=== PATIENT | male | born 1945 | race Caucasian/White ===

== ENCOUNTER 2018-03-09 19:56 | Emergency (ER) | payer MEDICARE, OTHER ==
[2018-03-09 20:29] LABS: CHLORIDE,CL 104 mEq/L (98-106); SODIUM,NA 143 mEq/L (136-145)
[2018-03-09] MEDS ORDERED: Diltiazem 25 MG/5 ML SDV IVPUSH ONE (20:45)
[2018-03-09] MEDS ORDERED: Metoprolol Tartrate 5 MG/5 ML SDV IVPUSH ONE ×3 (21:00→23:30)
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
[2018-03-09] MEDS ORDERED: Aspirin 325 MG Tab PO ONE (21:21)
[2018-03-09] MEDS ORDERED: Nitroglycerin 0.4 MG Tab.SL SL ONE (21:22)
[2018-03-09] MEDS ORDERED: Aspirin 81 MG Tab.Chew PO ONE (21:24)
[2018-03-09] MEDS ORDERED: Digoxin 500 MCG/2 ML Amp IVPUSH ONE (21:51)
[2018-03-09] MEDS ORDERED: Heparin Sodium/D5W 500 ML ONE (22:02)
[2018-03-09] MEDS ORDERED: Heparin Sodium 10,000 Units/1 ML MDV ONE (22:26)
[2018-03-09] MEDS ORDERED: Amiodarone 150 MG/3 ML SDV ONE (23:22)
[2018-03-09] MEDS ORDERED: Metoprolol Tartrate 5 MG/5 ML SDV ONE (23:23)
[2018-03-09] MEDS ORDERED: Heparin Sodium 10,000 Units/1 ML MDV IVPUSH ONE (23:26)
[2018-03-09] MEDS ORDERED: Amiodarone 150 MG/3 ML SDV IVPUSH ONE (23:30)
== END 2018-03-09 23:35 ==
LOC: CC.ED 19:56
DX: I48.91 Unspecified atrial fibrillation (principal); R55 Syncope and collapse; E78.00 Pure hypercholesterolemia, unspecified; I10 Essential (primary) hypertension; F17.210 Nicotine dependence, cigarettes, uncomplicated; I25.10 Atherosclerotic heart disease of native coronary artery without angina pectoris; E78.5 Hyperlipidemia, unspecified; Z95.5 Presence of coronary angioplasty implant and graft; Z79.899 Other long term (current) drug therapy; Z79.82 Long term (current) use of aspirin
CPT/HCPCS: 36415; 70450; 71046; 80048; 81001; 82550; 83615; 84484; 85025; 85610; 85730; 96374; 96375; 99285; A9270; J1160; J1644; J3490